=== PATIENT | male | born 1970 | race Two or more races ===

== ENCOUNTER 2023-12-26 20:03 | Inpatient (IN) | payer OTHER ==
[~2023-12-26] VITALS: Ht 160 cm; Wt 73.7 kg
[2023-12-26 21:43] LABS: BASOPHILS % (AUTO) 3.3 % (0.0-2.0); EOSINOPHILS % (AUTO) 2.3 % (1.0-6.0); HEMATOCRIT 37.3 % (41-53); HEMOGLOBIN 12.4 g/dL (13.5-17.5); LYMPHOCYTES # (AUTO) 1.5 K/uL (1.0-4.8); LYMPHOCYTES % (AUTO) 38.4 % (22.0-44.0); MEAN CORPUSCULAR HEMOGLOBIN 33.8 pg (26.0-34.0); MEAN CORPUSCULAR HGB CONC 33.2 G/dL (31.0-37.0); MEAN CORPUSCULAR VOLUME 102 fL (80-100); MONOCYTES # (AUTO) 0.4 K/uL (0.1-1.0); MONOCYTES % (AUTO) 9.6 % (2.0-9.0); NEUTROPHILS # (AUTO) 1.8 K/uL (1.8-7.7); NEUTROPHILS % (AUTO) 46.4 % (40.0-70.0); RED BLOOD CELL COUNT(AUTO) 3.66 MIL/uL (4.50-5.90); RED CELL DISTRIBUTION WIDTH 18.6 % (11.5-14.5)
[2023-12-26 21:50] LABS: ANION GAP 9 mmol/L (8-16); CALCIUM, TOTAL 7.9 mg/dL (8.8-10.5); CARBON DIOXIDE 30 mmol/L (22-29); CHLORIDE 106 mmol/L (98-107); CREATININE 0.76 mg/dL (0.60-1.30); GLOMERULAR FILTR. RATE CALC > 60 mL/min (>60); GLUCOSE,RANDOM 96 mg/dL (70-110); SODIUM SERUM 145 mmol/L (136-145); UREA NITROGEN, BLOOD 16 mg/dL (7-18)
[2023-12-26 21:53] LABS: PLATELET COUNT (AUTO) 96 K/uL (150-450); RBC MORPHOLOGY COMMENT NORMAL RBC MORPH
[2023-12-26 21:56] LABS: ALANINE AMINOTRANSFERASE 55 U/L (12-78); ALBUMIN 3.6 g/dL (3.4-5.0); ALKALINE PHOSPHATASE 119 U/L (46-116); ASPARTATE AMINOTRANSFERASE 85 U/L (15-37); BILIRUBIN,TOTAL 0.6 mg/dL (0.1-1.0); TOTAL PROTEIN, SERUM 7.5 g/dL (6.4-8.2)
[2023-12-26 22:02] LABS: ALCOHOL, BLOOD (SERUM) 412 mg/dL (0-10)
[2023-12-26] MEDS: KETOROLAC TROMETHAMINE 60 MG/2 ML VIAL IM ONE (22:43)
[2023-12-26] MEDS: SODIUM CHLORIDE 0.9% 1,000 ML IV ONE (23:06)
[2023-12-27] MEDS ORDERED: MAGNESIUM HYDROXIDE SUSPENSION 30 ML UDCUP PO PRN (00:45)
[2023-12-27] MEDS: 1: MAGNESIUM SULFATE 2 GM, MVI, ADULT NO.1 WITH VIT K 10 ML, THIAMINE 100 MG, FOLIC ACID IV SCH (01:40)
[2023-12-27] MEDS: ACETAMINOPHEN 325 MG TABLET PO PRN (04:37)
[2023-12-27 04:42] VITALS: BP 145/91; PULSE 63; RESP 20; TEMP 97.8; O2SAT 98
[2023-12-27 04:45] LABS: APPEARANCE,URINE CLEAR (CLEAR); BILIRUBIN,URINE NEGATIVE (NEGATIVE); COLOR,URINE LIGHT YELLOW (YELLOW); GLUCOSE, URINE (UA) NEGATIVE (NEGATIVE); KETONES,URINE NEGATIVE (NEGATIVE); LEUKOCYTE ESTERASE ,URINE NEGATIVE (NEGATIVE); NITRATE,URINE NEGATIVE (NEGATIVE); OCCULT BLOOD,URINE TRACE (NEGATIVE); PH,URINE 6.5 (5.0-8.0); PROTEIN,URINE NEGATIVE (NEGATIVE); SPECIFIC GRAVITIY, URINE 1.018 (1.003-1.030); UROBILINOGEN,URINE <=1.0 mg/dL (<=1.0)
[2023-12-27 04:46] LABS: PH,URINE DRUG SCREEN 6.5 (5.0-8.0)
[2023-12-27 04:54] LABS: AMPHET/METH SCREEN,URINE NEGATIVE (NEGATIVE); BARBITURATE SCREEN, URINE NEGATIVE (NEGATIVE); BENZODIAZEPINES SCREEN,URINE POSITIVE (NEGATIVE); CANNABINOID SCREEN,URINE NEGATIVE (NEGATIVE); COCAINE SCREEN,URINE NEGATIVE (NEGATIVE); METHADONE SCREEN, URINE NEGATIVE (NEGATIVE); OPIATE SCREEN,URINE NEGATIVE (NEGATIVE); PHENCYCLIDINE SCREEN,URINE NEGATIVE (NEGATIVE)
[2023-12-27 04:57] LABS: BACTERIA,URINE None Seen /HPF (None Seen); RBC,URINE 0-2 /HPF (0-2); SQUAMOUS EPITHELIAL CELL,UR Few /LPF (None Seen); WBC,URINE None Seen /HPF (0-5)
[2023-12-27 04:58] LABS: ALCOHOL, URINE DRUG SCREEN POSITIVE (NEGATIVE)
[2023-12-27 07:11] VITALS: BP 134/90; PULSE 74; RESP 18; TEMP 97.5; O2SAT 97
[2023-12-27] MEDS: PANTOPRAZOLE SODIUM 40 MG/VIAL IVP SCH (08:04)
[2023-12-27] MEDS: HYDROCODONE/ACETAMINOPHEN 5-325 MG TABLET PO PRN (12:26)
[2023-12-27] MEDS: ChlordiazePOXIDE HCL 10 MG CAPSULE PO SCH (12:26)
[2023-12-27 13:43] VITALS: BP 136/89; PULSE 83; RESP 18; TEMP 98; O2SAT 95
[2023-12-27] MEDS ORDERED: SODIUM CHLORIDE 0.9% 1,000 ML ONE (14:37)
[2023-12-27] MEDS: LORazepam 2 MG/ML VIAL IVP PRN (15:13)
[2023-12-27 16:04] VITALS: BP 152/105; PULSE 91; RESP 20; TEMP 97.7; O2SAT 97
[2023-12-27] MEDS: ONDANSETRON HCL 4 MG/2 ML VIAL IVP PRN (18:00)
[2023-12-27 19:58] VITALS: BP 141/98; PULSE 89; RESP 19; TEMP 98.4; O2SAT 98
[2023-12-28] VITALS (7 sets, daily range): BP systolic 140–163; BP diastolic 94–108; PULSE 72–105; RESP 16–19; TEMP 97.9–98.7; O2SAT 97–99
[2023-12-28] MEDS: ZOLPIDEM TARTRATE 5 MG TABLET PO PRN (23:52)
[2023-12-29 04:55] VITALS: BP 146/90; PULSE 73; RESP 18; TEMP 98.6; O2SAT 99
[2023-12-29 08:11] VITALS: BP 149/103; PULSE 100; RESP 18; TEMP 98; O2SAT 99
== END 2023-12-29 11:15 | disposition home or self-care (01) | DRG 384 ==
LOC: EMS 20:03 → EDH 12-27 01:50 → 5N 12-27 04:15
PROVIDERS: ADMIT Internal Medicine; ATTEND Internal Medicine
DX: S00.83XA Contusion of other part of head, initial encounter (principal); D61.818 Other pancytopenia; K70.9 Alcoholic liver disease, unspecified; S00.81XA Abrasion of other part of head, initial encounter; F10.129 Alcohol abuse with intoxication, unspecified; Y90.8 Blood alcohol level of 240 mg/100 ml or more; X58.XXXA Exposure to other specified factors, initial encounter; Y93.89 Activity, other specified; Y99.8 Other external cause status; Y92.009 Unspecified place in unspecified non-institutional (private) residence as the place of occurrence of the external cause
CPT/HCPCS: 70450; 72125; 80048; 80076; 80307; 81001; 85025; 99285; C9113; G0480; J1885; J2060; J2405; J3411; J3475; J3490; J7030

== ENCOUNTER 2024-01-11 05:21 | Inpatient (IN) | payer OTHER ==
[~2024-01-11] VITALS: Ht 162.6 cm; Wt 75.9 kg
[2024-01-11 06:37] LABS: BASOPHILS % (AUTO) 1.2 % (0.0-2.0); EOSINOPHILS % (AUTO) 0.9 % (1.0-6.0); HEMATOCRIT 38.8 % (41-53); HEMOGLOBIN 13.1 g/dL (13.5-17.5); LYMPHOCYTES # (AUTO) 1.5 K/uL (1.0-4.8); LYMPHOCYTES % (AUTO) 43.4 % (22.0-44.0); MEAN CORPUSCULAR HEMOGLOBIN 33.6 pg (26.0-34.0); MEAN CORPUSCULAR HGB CONC 33.7 G/dL (31.0-37.0); MEAN CORPUSCULAR VOLUME 100 fL (80-100); MONOCYTES # (AUTO) 0.2 K/uL (0.1-1.0); MONOCYTES % (AUTO) 6.8 % (2.0-9.0); NEUTROPHILS # (AUTO) 1.6 K/uL (1.8-7.7); NEUTROPHILS % (AUTO) 47.7 % (40.0-70.0); PLATELET COUNT (AUTO) 37 K/uL (150-450); RED BLOOD CELL COUNT(AUTO) 3.89 MIL/uL (4.50-5.90); RED CELL DISTRIBUTION WIDTH 16.9 % (11.5-14.5); WHITE BLOOD COUNT (AUTO) 3.4 K/uL (4.5-11.0)
[2024-01-11 06:42] LABS: ANION GAP 15 mmol/L (8-16); CALCIUM, TOTAL 7.9 mg/dL (8.8-10.5); CARBON DIOXIDE 26 mmol/L (22-29); CHLORIDE 103 mmol/L (98-107); GLOMERULAR FILTR. RATE CALC > 60 mL/min (>60); GLUCOSE,RANDOM 107 mg/dL (70-110); POTASSIUM 3.9 mmol/L (3.5-5.1); SODIUM SERUM 144 mmol/L (136-145); UREA NITROGEN, BLOOD 14 mg/dL (7-18)
[2024-01-11 06:47] LABS: ALANINE AMINOTRANSFERASE 151 U/L (12-78); ALBUMIN 3.6 g/dL (3.4-5.0); ALKALINE PHOSPHATASE 256 U/L (46-116); ASPARTATE AMINOTRANSFERASE 389 U/L (15-37); BILIRUBIN,TOTAL 1.1 mg/dL (0.1-1.0); TOTAL PROTEIN, SERUM 8.3 g/dL (6.4-8.2)
[2024-01-11 06:51] LABS: INR 1.1 (0.9-1.1)
[2024-01-11] MEDS: SODIUM CHLORIDE 0.9% 1,000 ML IV ONE (06:56)
[2024-01-11 07:04] LABS: LIPASE 316 U/L (16-77)
[2024-01-11 07:05] LABS: B-TYPE NATRIURETIC PEPTIDE 8 pg/mL (0-100)
[2024-01-11] MEDS: MAGNESIUM SULFATE 2 GM, MVI, ADULT NO.1 WITH VIT K 10 ML, THIAMINE 100 MG, FOLIC ACID 1... IV ONE (07:48)
[2024-01-11] MEDS: PANTOPRAZOLE SODIUM 40 MG/VIAL IVP ONE (07:49)
[2024-01-11 10:59] LABS: ALCOHOL, URINE DRUG SCREEN POSITIVE (NEGATIVE); AMPHET/METH SCREEN,URINE NEGATIVE (NEGATIVE); BARBITURATE SCREEN, URINE NEGATIVE (NEGATIVE); BENZODIAZEPINES SCREEN,URINE POSITIVE (NEGATIVE); CANNABINOID SCREEN,URINE NEGATIVE (NEGATIVE); COCAINE SCREEN,URINE NEGATIVE (NEGATIVE); METHADONE SCREEN, URINE NEGATIVE (NEGATIVE); OPIATE SCREEN,URINE NEGATIVE (NEGATIVE); PHENCYCLIDINE SCREEN,URINE NEGATIVE (NEGATIVE)
[2024-01-11 11:35] VITALS: BP 133/82; PULSE 67; RESP 18; TEMP 98.1; O2SAT 100
[2024-01-11] MEDS ORDERED: MAGNESIUM HYDROXIDE SUSPENSION 30 ML UDCUP PO PRN (13:15)
[2024-01-11] MEDS ORDERED: BISACODYL 10 MG RECTAL RECTAL SUPPOSITORY PR PRN (13:15)
[2024-01-11] MEDS ORDERED: ACETAMINOPHEN 325 MG TABLET PO PRN (13:15)
[2024-01-11 13:43] VITALS: BP 130/79; PULSE 82
[2024-01-11] MEDS: HYDROCODONE/ACETAMINOPHEN 5-325 MG TABLET PO PRN (13:47)
[2024-01-11] MEDS: ChlordiazePOXIDE HCL 25 MG CAPSULE PO PRN (13:48)
[2024-01-11 15:30] VITALS: BP 125/88; PULSE 89; RESP 19; TEMP 98.9; O2SAT 97
[2024-01-11] MEDS: MAGNESIUM OXIDE 400 MG TABLET PO ONE (15:31)
[2024-01-11] MEDS: MORPHINE SULFATE 2 MG/ML SYRINGE IVP PRN (15:32)
[2024-01-11] MEDS ORDERED: HEPARIN SODIUM,PORCINE 5,000 UNITS/ML VIAL SQ SCH (16:00)
[2024-01-11] MEDS: 1: MAGNESIUM SULFATE 2 GM, MVI, ADULT NO.1 WITH VIT K 10 ML, THIAMINE 100 MG, FOLIC ACID IV SCH (17:17)
[2024-01-11] MEDS: DOCUSATE SODIUM 100 MG CAPSULE PO SCH (20:05)
[2024-01-11 20:06] VITALS: BP 154/99; PULSE 88; RESP 19; TEMP 98.1; O2SAT 98
[2024-01-11] MEDS: HYDROCORTISONE 2.5% 30 GM CREAM TP SCH (20:06)
[2024-01-11 21:08] VITALS: BP 154/99; PULSE 88; RESP 18; TEMP 98.1; O2SAT 98
[2024-01-12] VITALS (11 sets, daily range): BP systolic 112–168; BP diastolic 59–113; PULSE 83–141; RESP 18–19; TEMP 98–98.7; O2SAT 96–99
[2024-01-12] MEDS: ONDANSETRON HCL 4 MG/2 ML VIAL IVP PRN (01:07)
[2024-01-12] MEDS ORDERED: SODIUM CHLORIDE 0.9% 1,000 ML ONE (02:17)
[2024-01-12 07:19] LABS: BASOPHILS % (AUTO) 0.6 % (0.0-2.0); EOSINOPHILS % (AUTO) 0.3 % (1.0-6.0); HEMOGLOBIN 10.4 g/dL (13.5-17.5); LYMPHOCYTES # (AUTO) 0.6 K/uL (1.0-4.8); LYMPHOCYTES % (AUTO) 15.9 % (22.0-44.0); MEAN CORPUSCULAR HEMOGLOBIN 34.4 pg (26.0-34.0); MEAN CORPUSCULAR HGB CONC 34.6 G/dL (31.0-37.0); MEAN CORPUSCULAR VOLUME 100 fL (80-100); MONOCYTES # (AUTO) 0.2 K/uL (0.1-1.0); MONOCYTES % (AUTO) 5.7 % (2.0-9.0); NEUTROPHILS # (AUTO) 2.7 K/uL (1.8-7.7); NEUTROPHILS % (AUTO) 77.5 % (40.0-70.0); RED BLOOD CELL COUNT(AUTO) 3.01 MIL/uL (4.50-5.90); RED CELL DISTRIBUTION WIDTH 16.4 % (11.5-14.5); WHITE BLOOD COUNT (AUTO) 3.5 K/uL (4.5-11.0)
[2024-01-12 07:30] LABS: ANION GAP 9 mmol/L (8-16); CARBON DIOXIDE 26 mmol/L (22-29); CHLORIDE 95 mmol/L (98-107); CREATININE 0.59 mg/dL (0.60-1.30); GLOMERULAR FILTR. RATE CALC > 60 mL/min (>60); GLUCOSE,RANDOM 137 mg/dL (70-110); POTASSIUM 3.5 mmol/L (3.5-5.1); SODIUM SERUM 130 mmol/L (136-145); UREA NITROGEN, BLOOD 4 mg/dL (7-18)
[2024-01-12 07:46] LABS: PLATELET COUNT (AUTO) 20 K/uL (150-450)
[2024-01-12] MEDS: ChlordiazePOXIDE HCL 25 MG CAPSULE PO SCH (07:59)
[2024-01-12] MEDS: PANTOPRAZOLE SODIUM 40 MG DR TABLET PO SCH (07:59)
[2024-01-12] MEDS: METOCLOPRAMIDE HCL 5 MG/ML 2 ML VIAL IVP ONE (11:11)
[2024-01-12] MEDS ORDERED: MAGNESIUM OXIDE 400 MG TABLET PO PRN (15:15)
[2024-01-12] MEDS ORDERED: MAGNESIUM SULFATE 4 GM/WATER 100 ML IV PRN (15:15)
[2024-01-12] MEDS: OCTREOTIDE ACETATE 500 MCG in SODIUM CHLORIDE 0.9% 97.5 ML IV SCH (15:52)
[2024-01-12] MEDS: PANTOPRAZOLE SODIUM 80 MG in SODIUM CHLORIDE 0.9% 100 ML IV SCH (15:52)
[2024-01-12 15:59] LABS: ALBUMIN 3.7 g/dL (3.4-5.0)
[2024-01-12] MEDS: MAGNESIUM SULFATE 2 GM/WATER 50 ML IV PRN (17:32)
[2024-01-13 03:35] VITALS: BP 121/92; PULSE 100; RESP 18; TEMP 98.7; O2SAT 97
[2024-01-13] MEDS ORDERED: SODIUM CHLORIDE 0.9% 1,000 ML ONE ×2 (06:20→09:55)
[2024-01-13] MEDS ORDERED: LIDOCAINE/PF 2% 5 ML VIAL ONE (07:30)
[2024-01-13] MEDS ORDERED: PROPOFOL 1% 20 ML VIAL IVP ONE (07:30)
[2024-01-13 07:56] VITALS: BP 152/92; PULSE 102; RESP 18; TEMP 98.6; O2SAT 98
[2024-01-13 08:08] LABS: BASOPHILS % (AUTO) 0.7 % (0.0-2.0); EOSINOPHILS % (AUTO) 2.1 % (1.0-6.0); HEMATOCRIT 33.5 % (41-53); HEMOGLOBIN 11.2 g/dL (13.5-17.5); LYMPHOCYTES # (AUTO) 0.6 K/uL (1.0-4.8); LYMPHOCYTES % (AUTO) 14.8 % (22.0-44.0); MEAN CORPUSCULAR HEMOGLOBIN 34.2 pg (26.0-34.0); MEAN CORPUSCULAR HGB CONC 33.4 G/dL (31.0-37.0); MEAN CORPUSCULAR VOLUME 102 fL (80-100); MONOCYTES # (AUTO) 0.2 K/uL (0.1-1.0); MONOCYTES % (AUTO) 5.9 % (2.0-9.0); NEUTROPHILS % (AUTO) 76.5 % (40.0-70.0); PLATELET COUNT (AUTO) 25 K/uL (150-450); RED BLOOD CELL COUNT(AUTO) 3.27 MIL/uL (4.50-5.90); RED CELL DISTRIBUTION WIDTH 16.3 % (11.5-14.5); WHITE BLOOD COUNT (AUTO) 3.9 K/uL (4.5-11.0)
[2024-01-13 08:18] LABS: ALANINE AMINOTRANSFERASE 96 U/L (12-78); ALBUMIN 3.5 g/dL (3.4-5.0); ALKALINE PHOSPHATASE 188 U/L (46-116); ANION GAP 8 mmol/L (8-16); ASPARTATE AMINOTRANSFERASE 160 U/L (15-37); BILIRUBIN,TOTAL 2.7 mg/dL (0.1-1.0); CALCIUM, TOTAL 8.2 mg/dL (8.8-10.5); CARBON DIOXIDE 28 mmol/L (22-29); CHLORIDE 95 mmol/L (98-107); CREATININE 0.68 mg/dL (0.60-1.30); GLOMERULAR FILTR. RATE CALC > 60 mL/min (>60); GLUCOSE,RANDOM 145 mg/dL (70-110); LIPASE 90 U/L (16-77); POTASSIUM 4.1 mmol/L (3.5-5.1); SODIUM SERUM 131 mmol/L (136-145); UREA NITROGEN, BLOOD 6 mg/dL (7-18)
[2024-01-13 13:22] VITALS: BP 149/95; PULSE 107; RESP 18; TEMP 98.8; O2SAT 100
[2024-01-13 15:45] VITALS: BP 136/90; PULSE 100; RESP 18; TEMP 98; O2SAT 98
[2024-01-13 19:35] VITALS: BP 132/84; PULSE 98; RESP 18; TEMP 98.3; O2SAT 100
[2024-01-13] MEDS ORDERED: OXYGEN THERAPY IH SCH (20:00)
[2024-01-13] MEDS: ChlordiazePOXIDE HCL 25 MG CAPSULE PO PRN (21:28)
[2024-01-13] MEDS: ZOLPIDEM TARTRATE 5 MG TABLET PO PRN (21:34)
[2024-01-13 23:10] VITALS: BP 156/93; PULSE 98; RESP 19; TEMP 97.7; O2SAT 100
[2024-01-14] VITALS (11 sets, daily range): BP systolic 89–166; BP diastolic 61–143; PULSE 95–159; RESP 18–26; TEMP 97.9–98.8; O2SAT 98–100
[2024-01-14] MEDS: METOPROLOL TARTRATE 25 MG TABLET PO SCH (00:57)
[2024-01-14] MEDS: LORazepam 2 MG/ML VIAL IVP PRN (00:58)
[2024-01-14] MEDS: LORazepam 2 MG/ML VIAL IVP ONE ×2 (03:27→05:35)
[2024-01-14] MEDS ORDERED: LORazepam 2 MG/ML VIAL IVP ONE (05:45)
[2024-01-14 06:21] LABS: BASOPHILS % (AUTO) 0.3 % (0.0-2.0); EOSINOPHILS % (AUTO) 1.1 % (1.0-6.0); HEMATOCRIT 30.4 % (41-53); HEMOGLOBIN 10.3 g/dL (13.5-17.5); LYMPHOCYTES # (AUTO) 0.5 K/uL (1.0-4.8); LYMPHOCYTES % (AUTO) 12.8 % (22.0-44.0); MEAN CORPUSCULAR HEMOGLOBIN 34.6 pg (26.0-34.0); MEAN CORPUSCULAR HGB CONC 33.7 G/dL (31.0-37.0); MEAN CORPUSCULAR VOLUME 103 fL (80-100); MONOCYTES # (AUTO) 0.2 K/uL (0.1-1.0); MONOCYTES % (AUTO) 6.4 % (2.0-9.0); NEUTROPHILS % (AUTO) 79.4 % (40.0-70.0); PLATELET COUNT (AUTO) 29 K/uL (150-450); RED BLOOD CELL COUNT(AUTO) 2.96 MIL/uL (4.50-5.90); RED CELL DISTRIBUTION WIDTH 16.2 % (11.5-14.5); WHITE BLOOD COUNT (AUTO) 3.8 K/uL (4.5-11.0)
[2024-01-14 07:13] LABS: ANION GAP 8 mmol/L (8-16); CALCIUM, TOTAL 8.7 mg/dL (8.8-10.5); CARBON DIOXIDE 25 mmol/L (22-29); CHLORIDE 101 mmol/L (98-107); CREATININE 0.72 mg/dL (0.60-1.30); GLOMERULAR FILTR. RATE CALC > 60 mL/min (>60); GLUCOSE,RANDOM 107 mg/dL (70-110); POTASSIUM 3.8 mmol/L (3.5-5.1); SODIUM SERUM 134 mmol/L (136-145); UREA NITROGEN, BLOOD 4 mg/dL (7-18)
[2024-01-14] MEDS ORDERED: SODIUM CHLORIDE 0.9% 0 ML ONE (07:34)
[2024-01-14] MEDS: PANTOPRAZOLE SODIUM 40 MG DR TABLET PO SCH (07:57)
[2024-01-14] MEDS: ETHYL ALCOHOL 62% ANTISEPTIC NASAL SANITIZER 0.6 ML AMPUL NASAL SCH (07:58)
[2024-01-14 08:35] LABS: RBC MORPHOLOGY COMMENT ABNORMAL RBC MORPH
[2024-01-14] MEDS: ChlordiazePOXIDE HCL 10 MG CAPSULE PO SCH (09:52)
[2024-01-14] MEDS: ChlordiazePOXIDE HCL 10 MG CAPSULE PO PRN (10:29)
[2024-01-14] MEDS ORDERED: LACTULOSE 200 GM/300 ML RECTAL SOLUTION PR ONE (13:00)
[2024-01-14 13:19] LABS: PHOSPHORUS 1.6 mg/dL (2.5-4.9)
[2024-01-14] MEDS: MIDAZOLAM HCL 100 MG in SODIUM CHLORIDE 0.9% 180 ML IV PRN (14:35)
[2024-01-14] MEDS: LACTULOSE 20 GM/30 ML SOLUTION UDCUP PO ONE (19:04)
[2024-01-14] MEDS ORDERED: DEXMEDETOMIDINE HCL 400 MCG in SODIUM CHLORIDE 0.9% 96 ML IV PRN (20:45)
[2024-01-15] VITALS (7 sets, daily range): BP systolic 100–148; BP diastolic 56–83; PULSE 69–101; RESP 11–25; TEMP 98.1–98.9; O2SAT 94–99
[2024-01-15 05:48] LABS: BASOPHILS % (AUTO) 0.8 % (0.0-2.0); EOSINOPHILS % (AUTO) 3.8 % (1.0-6.0); HEMATOCRIT 27.3 % (41-53); HEMOGLOBIN 9.1 g/dL (13.5-17.5); LYMPHOCYTES # (AUTO) 0.7 K/uL (1.0-4.8); LYMPHOCYTES % (AUTO) 30.7 % (22.0-44.0); MEAN CORPUSCULAR HEMOGLOBIN 34.4 pg (26.0-34.0); MEAN CORPUSCULAR HGB CONC 33.4 G/dL (31.0-37.0); MEAN CORPUSCULAR VOLUME 103 fL (80-100); MONOCYTES # (AUTO) 0.3 K/uL (0.1-1.0); MONOCYTES % (AUTO) 11.8 % (2.0-9.0); NEUTROPHILS # (AUTO) 1.3 K/uL (1.8-7.7); NEUTROPHILS % (AUTO) 52.9 % (40.0-70.0); PLATELET COUNT (AUTO) 37 K/uL (150-450); RED BLOOD CELL COUNT(AUTO) 2.65 MIL/uL (4.50-5.90); RED CELL DISTRIBUTION WIDTH 15.6 % (11.5-14.5); WHITE BLOOD COUNT (AUTO) 2.4 K/uL (4.5-11.0)
[2024-01-15 05:49] LABS: ANION GAP 10 mmol/L (8-16); CALCIUM, TOTAL 8.5 mg/dL (8.8-10.5); CARBON DIOXIDE 23 mmol/L (22-29); CHLORIDE 105 mmol/L (98-107); CREATININE 0.64 mg/dL (0.60-1.30); GLOMERULAR FILTR. RATE CALC > 60 mL/min (>60); GLUCOSE,RANDOM 99 mg/dL (70-110); POTASSIUM 3.2 mmol/L (3.5-5.1); SODIUM SERUM 138 mmol/L (136-145); UREA NITROGEN, BLOOD 6 mg/dL (7-18)
[2024-01-15] MEDS ORDERED: ChlordiazePOXIDE HCL 10 MG CAPSULE PO PRN (07:00)
[2024-01-15 07:56] LABS: RBC MORPHOLOGY COMMENT ABNORMAL RBC MORPH
[2024-01-15] MEDS ORDERED: POTASSIUM CHL 10 MEQ/WATER 50 ML IV PRN (10:45)
[2024-01-15] MEDS: POTASSIUM CHLORIDE 20 MEQ ER TABLET PO PRN (10:54)
[2024-01-16 05:57] VITALS: BP 122/66; PULSE 74; RESP 19; TEMP 98; O2SAT 98
[2024-01-16 06:54] LABS: BASOPHILS % (AUTO) 0.8 % (0.0-2.0); EOSINOPHILS % (AUTO) 3.3 % (1.0-6.0); HEMATOCRIT 28.4 % (41-53); HEMOGLOBIN 9.6 g/dL (13.5-17.5); LYMPHOCYTES # (AUTO) 1.1 K/uL (1.0-4.8); LYMPHOCYTES % (AUTO) 30.9 % (22.0-44.0); MEAN CORPUSCULAR HEMOGLOBIN 35.1 pg (26.0-34.0); MEAN CORPUSCULAR HGB CONC 33.9 G/dL (31.0-37.0); MEAN CORPUSCULAR VOLUME 104 fL (80-100); MONOCYTES # (AUTO) 0.4 K/uL (0.1-1.0); MONOCYTES % (AUTO) 10.5 % (2.0-9.0); NEUTROPHILS # (AUTO) 1.9 K/uL (1.8-7.7); NEUTROPHILS % (AUTO) 54.5 % (40.0-70.0); PLATELET COUNT (AUTO) 49 K/uL (150-450); RED BLOOD CELL COUNT(AUTO) 2.74 MIL/uL (4.50-5.90); RED CELL DISTRIBUTION WIDTH 16.5 % (11.5-14.5); WHITE BLOOD COUNT (AUTO) 3.5 K/uL (4.5-11.0)
[2024-01-16 07:21] LABS: ANION GAP 5 mmol/L (8-16); CALCIUM, TOTAL 8.4 mg/dL (8.8-10.5); CARBON DIOXIDE 26 mmol/L (22-29); CHLORIDE 105 mmol/L (98-107); CREATININE 0.81 mg/dL (0.60-1.30); GLOMERULAR FILTR. RATE CALC > 60 mL/min (>60); GLUCOSE,RANDOM 116 mg/dL (70-110); POTASSIUM 4.1 mmol/L (3.5-5.1); SODIUM SERUM 136 mmol/L (136-145); UREA NITROGEN, BLOOD 12 mg/dL (7-18)
[2024-01-16 07:44] VITALS: BP 124/79; PULSE 75; RESP 18; TEMP 98.6; O2SAT 99
[2024-01-16 08:26] LABS: RBC MORPHOLOGY COMMENT ABNORMAL RBC MORPH
[2024-01-16 11:37] VITALS: BP 137/84; PULSE 77; RESP 17; TEMP 98.3; O2SAT 100
[2024-01-16] MEDS ORDERED: THIA100T80 PO (13:10)
[2024-01-16] MEDS ORDERED: LEVE-71 PO (13:10)
[2024-01-16] MEDS ORDERED: LORA-999 PO (13:10)
[2024-01-16] MEDS ORDERED: SODIUM CHLORIDE 0.9% 250 ML IV ONE (14:26)
[2024-01-16] MEDS: LevETIRAcetam 1,000 MG in DEXTROSE 5%-WATER 100 ML IV ONE (14:34)
[2024-01-16] MEDS ORDERED: PANT-31 PO (15:34)
[2024-01-16] MEDS ORDERED: FERR324T23 PO (15:38)
[2024-01-16 15:44] VITALS: BP 129/72; PULSE 78; RESP 16; TEMP 98.1; O2SAT 99
[2024-01-16] MEDS ORDERED: LevETIRAcetam 500 MG TABLET PO SCH (21:00)
== END 2024-01-16 17:10 | disposition home or self-care (01) | DRG 241 ==
LOC: EMS 05:21 → EDH 10:30 → 5S 11:15 → ICU 01-14 04:04 → 5S 01-15 18:47
PROVIDERS: ADMIT Internal Medicine; ATTEND Internal Medicine
PROC: 0DJD8ZZ Inspection of Lower Intestinal Tract, Via Natural or Artificial Opening Endoscopic (ICD-10-PCS; principal; 2024-01-13 11:35)
DX: K29.21 Alcoholic gastritis with bleeding (principal); D61.818 Other pancytopenia; E43 Unspecified severe protein-calorie malnutrition; K85.90 Acute pancreatitis without necrosis or infection, unspecified; F10.231 Alcohol dependence with withdrawal delirium; F41.9 Anxiety disorder, unspecified; K44.9 Diaphragmatic hernia without obstruction or gangrene; K70.10 Alcoholic hepatitis without ascites; K64.8 Other hemorrhoids; K76.6 Portal hypertension; D62 Acute posthemorrhagic anemia; K70.30 Alcoholic cirrhosis of liver without ascites; Z68.28 Body mass index [BMI] 28.0-28.9, adult; Z86.73 Personal history of transient ischemic attack (TIA), and cerebral infarction without residual deficits; Z90.49 Acquired absence of other specified parts of digestive tract
CPT/HCPCS: 71045; 76700; 80048; 80053; 80076; 80307; 82040; 82140; 82271; 83690; 83735; 83880; 84100; 84132; 85025; 85610; 85730; 87081; 87481; 93005; 97163; 97166; 97535; 99285; C9113; G0480; J0712; J2060; J2250; J2270; J2354; J2405; J2704; J2765; J3411; J3475; J3490; J7030; J7050; J7060; 36415-L1; 36415-TC